=== PATIENT | female | born 1955 | race Caucasian/White ===

== ENCOUNTER 2021-05-03 10:30 | Outpatient (CLI) | payer MEDICARE, SELFPAY | END 2021-05-03 10:31 | disposition home or self-care (01) | LOC: ANHAUDIO 10:33 | PROVIDERS: PCP Internal Medicine Infectious Disease; Visit Provider Internal Medicine Infectious Disease | DX: H90.3 Sensorineural hearing loss, bilateral (principal) | CPT/HCPCS: 92557; 92567 ==

== ENCOUNTER 2023-02-20 13:06 | Outpatient (CLI) | payer MEDICARE, MEDICAID, SELFPAY ==
--- NOTE | ~2023-02-20 | XR_ITS ---
EXAMINATION: XR abdomen/kub 1V INDICATION: Microscopic hematuria TECHNIQUE: Supine views of the abdomen were obtained on 2 radiographs. COMPARISON: CT from today FINDINGS: No urolithiasis is identified. The lung bases are clear. The bowel gas pattern is normal. T here are phleboliths of the right pelvis. IMPRESSION: 1. No urolithiasis identified. Reviewed, dictated and finalized at location F.
--- NOTE | ~2023-02-20 | CT_ITS ---
EXAMINATION: CT abdomen pelvis wo/w con DATE: 02/20/2023 14:04 INDICATION: Microscopic hematuria TECHNIQUE: Computed tomography (CT) of the abdomen and pelvis was performed without and subsequently with 130 CC Omnipaque 350 intravenous contrast. Automated exposure control and iterative reconstructi on technique were employed. Exam dose: 954.77 mGy-cm total exam DLP. COMPARISON: 02/20/2023 KUB 07/28/2013 CT chest abdomen pelvis FINDINGS: The lung bases are clear of infiltrate or consolidation. Normal heart size. No pericardial or pleural effusion. The liver, gallbladder, bile ducts, pancreas, pancreatic duct, and adrenal glands are unremarkable. T here are couple of lower pole right renal pinpoint and smaller nonobstructing calculi. No other urinary tract calculus or hydroureteronephrosis. No suspicious renal mass lesion or apparent filling defect of the renal collecting systems or renal p elves Retroverted uterus with some removal fibroid calcifications. The adnexal areas are unremarkable. Ther e is limited evaluation of the urinary bladder due to underdistention of intraluminal mass lesion or focal abnormal urinary bladder wall thickening is noted. Normal caliber of the abdominal aorta. No intraperitoneal or retroperitoneal or pelvic mass lesion or adenopathy or ascites. No bowel obstruction, bowel wall thickening, pneumatosis or intraperitoneal free air. Small fat-containing umbilical hernia. Multilevel degenerative disc disease, severe at L1-2, L4-5 and L5-S1, with associated mild retrolisth esis at L1-2 and L4-5 nutrition to L3-4. IMPRESSION: No urinary tract calculus, hydroureteronephrosis or renal or urinary bladder mass lesion Retroverted uterus with calcified uterine fibroids Reviewed, dictated and finalized at Location A. Reviewed, dictated and finalized at location L. IMPRESSION: No urinary tract calculus, hydroureteronephrosis or renal or urina ry bladder mass lesion Retroverted uterus with calcified uterine fibroids
[2023-02-20 13:42] LABS: Estimated Glomerular Filt Rate 55
== END 2023-02-20 13:07 | disposition home or self-care (01) ==
LOC: ANHIMG 13:09
PROVIDERS: PCP Internal Medicine Infectious Disease; Visit Provider Nurse Practitioner Adult Health
DX: R31.29 Other microscopic hematuria (principal); D25.9 Leiomyoma of uterus, unspecified
CPT/HCPCS: 74018; 74178; Q9967